=== PATIENT | female | born 1995 ===

== ENCOUNTER 2018-02-01 22:55 | Emergency (ER) | payer BC ==
[2018-02-01 23:05] VITALS: O2SAT 99
--- NOTE | 2018-02-02 00:07 | C.PDOC ---
History Of Present Illness 22 yo female G1Po, 28 wks , present to ED accompanied by for evaluation of pruritic rash gradually developed for past 3 days to B/L arms and lower legs. As per pt, denies recent illness, sick contact, fever, chills, sore throat, throat swelling or tightness, neck pain, CP,SOB, dyspnea, palpitation, denies abd. pain, vaginal bleeding, back pain, denies change in diet, denies recent new medication use, no previous hx of allergy. Pt admits, no complication during the current , (+) care. Ambulate to Ed for evaluation, not in any apparent distress. Time Seen by Provider: 02/01/18 23:30 Chief Complaint (Nursing): Abnormal Skin Integrity History Per: Patient, Family Onset/Duration Of Symptoms: Gradual Past Medical History Reviewed: Historical Data, Nursing Documentation, Vital Signs Vital Signs: Last Vital Signs Temp 98.1 F 02/02/18 00:27 Pulse 75 02/02/18 00:27 Resp 18 02/02/18 00:27 BP 121/72 02/02/18 00:27 Pulse Ox 99 02/02/18 02:03 - Medical History PMH: Asthma Family History: States: No Known Family Hx - Social History Hx Alcohol Use: No Hx Substance Use: No - Immunization History Hx Tetanus Toxoid Vaccination: Yes Hx Influenza Vaccination: No Hx Pneumococcal Vaccination: Yes Review Of Systems Except As Marked, All Systems Reviewed And Found Negative. Constitutional: Negative for: Fever, Chills Eyes: Negative for: Vision Change ENT: Negative for: Ear Discharge, Nose Discharge, Nose Congestion, Mouth Pain, Mouth Swelling, Throat Pain Cardiovascular: Negative for: Chest Pain, Palpitations, Edema, Light Headedness Respiratory: Negative for: Cough, Shortness of Breath, Wheezing Gastrointestinal: Negative for: Nausea, Vomiting, Abdominal Pain, Diarrhea Genitourinary: Negative for: Dysuria Musculoskeletal: Negative for: Neck Pain, Back Pain Skin: Positive for: Rash Neurological: Negative for: Weakness, Numbness, Headache, Dizziness Physical Exam - Physical Exam Appears: Well, Non-toxic, No Acute Distress Skin: Normal Color, Warm, Dry, Rash (scattered macular erythematous rash to B/L forearm and B/L anterior trejo area. NO edema, no proximal streaking.) Head: Normacephalic Eye(s): bilateral: PERRL Ear(s): Bilateral: Normal Nose: No Flaring, No Discharge Oral Mucosa: Moist, No Drooling Tongue: No Swelling Lips: No Swelling Throat: No Erythema, No Drooling, Other (Uvula midline, no edema.) Neck: Supple Cardiovascular: Rhythm Regular Respiratory: No Decreased Breath Sounds, No Accessory Muscle Use, No Stridor, No Wheezing Gastrointestinal/Abdominal: Soft, No Tenderness, Other (Gravid) Back: No CVA Tenderness Extremity: Normal ROM, No Pedal Edema, No Deformity, No Swelling Neurological/Psych: Oriented x3, Normal Speech ED Course And Treatment O2 Sat by Pulse Oximetry: 99 Pulse Ox Interpretation: Normal Progress Note: On re-evaluation, pt is afebrile, hemodynamicaly stable. NOn- toxic, tolerate Po well in Ed. PulseOx 99% RA. ENT: no acute findings, uvula midline, no edema. Neck: SUpple, (-) JVD. Lungs: CTA B/L, BS equal B/L. Abd: Gravid. SKin: erythematous macular rash to B/L forearm and anterior aspect lower legs B/L. No edema, no proximal streaking. Neurologicaly intact. Pt advised and ref. to F/u with PMD, OB in 2-3 days for re-eval. return to ED if any worsening or new changes. Disposition Counseled Patient/Family Regarding: Diagnosis, Need For Followup, Rx Given - Disposition Referrals: Michael Alvarado MD [Staff Provider] - Disposition: HOME/ ROUTINE Disposition Time: 00:07 Condition: STABLE Additional Instructions: Diet restriction Take medication as prescribed Follow up with PMD , OB in 2-3 days for re-evaluation. return to ED if any worsening or new changes. Prescriptions: DiphenhydrAMINE [Benadryl] 25 mg PO BID #10 cap Prednisone [Deltasone] 20 mg PO DAILY #3 tablet Instructions: Hives, - The Seventh Month Forms: YAMAP (Belarusian) Print Language: ALBANIAN - Clinical Impression Clinical Impression: Urticaria,
[2018-02-02 00:31] VITALS: BP 121/72; PULSE 75; RESP 18; TEMP 98.1
== END 2018-02-02 00:34 | disposition home or self-care (01) ==
LOC: C.ER 22:55
DX: O99.713 Diseases of the skin and subcutaneous tissue complicating pregnancy, third trimester (principal); L50.9 Urticaria, unspecified; Z3A.28 28 weeks gestation of pregnancy

== ENCOUNTER 2018-04-08 11:40 | Inpatient (IN) | payer BC ==
[2018-04-08] MEDS ORDERED: Lactated Ringer's 1,000 ML IV ONE ×2 (12:54→18:06)
[2018-04-08] MEDS ORDERED: Penicillin G 5 Million Unit Vial IVPB ONE ×2 (12:54→14:39)
[2018-04-08] MEDS ORDERED: Lactated Ringer's 1,000 ML IV SCH (13:00)
[2018-04-08 13:35] LABS: BASO # 0.1 K/uL (0.0-0.2); BASO % 0.7 % (0.0-2.0); EOS # 0.2 K/uL (0.0-0.7); EOS % 2.1 % (0.0-4.0); HEMOGLOBIN 11.6 g/dL (11.0-16.0); LYMPH # 2.3 K/uL (1.0-4.3); LYMPH % 27.7 % (20.0-40.0); MEAN CELL VOLUME 81.6 fL (81.0-99.0); MEAN CORPUSCULAR HEMOGLOBIN 26.5 pg (27.0-31.0); MEAN CORPUSCULAR HGB CONC 32.5 g/dL (33.0-37.0); MEAN PLATELET VOLUME 10.4 fL (7.2-11.7); MONO # 0.8 K/uL (0.0-0.8); MONO % 9.1 % (0.0-10.0); NEUT % 60.4 % (50.0-75.0); NRBC % 0.1 % (0.0-2.0); RBC 4.37 Mil/uL (3.80-5.20); RED CELL DISTRIBUTION WIDTH 16.8 % (11.5-14.5); WHITE BLOOD COUNT 8.3 K/uL (4.8-10.8)
[2018-04-08 13:41] LABS: SQUAMOUS EPITHIAL 4 /hpf (0-5); URINE BACTERIA RARE (<OCC); URINE BILIRUBIN NEGATIVE (NEGATIVE); URINE BLOOD 2+ (NEGATIVE); URINE CLARITY Hazy (Clear); URINE COLOR Amber (YELLOW); URINE GLUCOSE (UA) NORMAL (Normal); URINE LEUKOCYTE ESTERASE 3+ Leu/uL (Negative); URINE PROTEIN 1+ mg/dL (NEGATIVE)
[2018-04-08 13:46] LABS: BLOOD UREA NITROGEN 7 mg/dL (7-17); GFR NON-AFRICAN AMERICAN > 60
[2018-04-08 14:25] LABS: HEPATITIS B SURFACE AG Negative (NEGATIVE)
[2018-04-08] MEDS ORDERED: Sodium Citrate/Citric Acid 15 ml Sol ONE (15:11)
[2018-04-08] MEDS ORDERED: Oxytocin 10 Units/ml Inj ONE (15:11)
[2018-04-08] MEDS ORDERED: Oxytocin 20 units in LR 2,000 ML IV ONE (15:16)
[2018-04-08] MEDS ORDERED: cefOXitin IV 2 gm in Saline 2 GM/50 ML BAG IVPB ONE (15:16)
--- NOTE | 2018-04-08 16:16 | OBHP ---
Datetime: 04/08/2018 13:57 IP Adm Impression: , intrauterine ; Active labor IP Admit Plan: Admit to unit; Initiate labor protocol Admit Comment, IP Provider: This is a 22 y o @ 38.1 weeks (KAILYN 04/21/2018 via 1st trimester son o) presents to L+D c/o contractions q 5 mins and leakage of fluid that started at 6 am this morning. Denies VB. Reports positive movement. Reports last PO intake at 9 am this morning, states she d rank an Ensure before coming to L+D. Denies headache, dizziness, chest paib, sob, n/v/d/c, abd pain, urinary complaints, or other symptoms. PNC records indicate an OBUS on 03/27 with an EFW of 8lbs, 14 oz PMhx: asthma (last used albuterol inhaler 1 y ago) PSurgHx: denies Allergies: NKDA Meds: vits Fam hx: denies Soc hx: denies smoking, alcohol or illicit drug use Vag exam: /- Nitrazine test positive heart tracing: baseline 145 bpm, moderate accels, Cat I No contractions on toco A/P 22 y o at 38.1 weeks gestation w/ contractions q 5 mins + SROM at 6 am today. BMI 37 Macrosomia per US and size Admit to L+D. Admission labs ordered. Pt given the option of Augmentation of labor at this time and she requested an Elective S ection Hx GBS positive, start Penicillin G q 4 h Procedure, risks and possible complications fully reviewed with the patient and her and maria eugenia th verbalized understanding and requested to proceed. Pt signed the consent and Anesthesia and OR maude re. Plan d/w Dr. Fuentes, attending physician. Extremities - PN: Normal Abdomen - PN: Normal Back - PN: Normal Lungs - PN: Normal Heart - PN: Normal Neurologic - PN: Normal HEENT - PN: Normal General - PN: Normal Presentation-Admit: Vertex FHR - Baseline A Provider: 145 Membranes, Provider: Ruptured Contraction Comments Provider: no contractions on tocometer Gestation - Est Wks by US: 38.2 Nitrazine Provider: Positive IP Hx Assessment: PNC records available and reviewed EGA AdmitDate IP: 38.2 Vital Signs Provider: Reviewed; Within Normal Limits IP Chief Complaint: Uterine contractions; Suspected ruptured membranes; Maternal discomfort; e valuation NICHD Variability Prov Fetus A: Moderate 6-25bpm NICHD Accel Fetus A IP Provider: [id number] FHR Category Provider Fetus A: Category I NICHD Decel Fetus A IP Provider: None Dilatation, Provider: 3 Effacement, Provider: 80 Station, Provider: -1 Genitourinary Exam: Normal Datetime: 04/08/2018 13:19 Pelvic Type - PN: Adequate
[2018-04-08] MEDS ORDERED: Bupivacaine HCl 15 mg/2 ml Spinal Inj ONE (16:32)
[2018-04-08] MEDS ORDERED: Lidocaine Hydrochloride 5 ML INJ ONE (16:47)
--- NOTE | 2018-04-08 17:21 | US ---
Indication: Please estimate weight Comparison: None available Technique: Real-time ultrasound was performed through the pelvis. Findings: There is a single living fetus in cephalic presentation. Amniotic fluid volume is within normal limits. Fundal placenta. The placenta is not previa. There are no adnexal masses or cysts evident. Cervix length measures approximately 2.8 cm. The study was performed emergent evaluation, and the whole anatomic survey of the fetus was not performed. This should be performed on an outpatient elective basis as clinically warranted. Measurements and calculations: Fetus has a composite sonographic age of 37 weeks 6 days. This calculation is based on the biparietal diameter, head circumference, abdominal circumference, and femur length. Estimated heart rate 123.5 beats per min. Estimated weight 3334 g. Biophysical profile: movements 2/2 breathing 2/2 tone 2/2 Amniotic fluid 2/2 Total score impression: 01/09 Impression: Single living fetus with a composite sonographic age of 37 weeks 6 days. Estimated heart rate 123.5 beats per min. Biophysical profile of 8 out of 8. Cervix length measures approximately 2.8 cm.
[2018-04-08] MEDS ORDERED: Oxytocin 30 UNIT 30 UNITS/500 ML BAG IV ONE (18:06)
[2018-04-08] MEDS ORDERED: Oxycodone/Acetaminophen 5/325 mg Tab PO PRN ×2 (18:06)
[2018-04-08] MEDS ORDERED: Morphine 1 mg/ml preservative-free Inj(Duramorph) ONE (18:22)
[2018-04-08] MEDS ORDERED: ePHEDrine 50 mg/ml Inj ONE (18:50)
--- NOTE | 2018-04-08 21:54 | OBADHP ---
Datetime: 04/08/2018 13:57 Admit Comment, IP Provider: This is a 22 y o @ 38.1 weeks (KAILYN 04/21/2018 via 1st trimester son o) presents to L+D c/o contractions q 5 mins and leakage of fluid that started at 6 am this morning. Denies VB. Reports positive movement. Reports last PO intake at 9 am this morning, states she d rank an Ensure before coming to L+D. Denies headache, dizziness, chest paib, sob, n/v/d/c, abd pain, urinary complaints, or other symptoms. PNC records indicate an OBUS on 03/27 with an EFW of 8lbs, 14 oz PMhx: asthma (last used albuterol inhaler 1 y ago) PSurgHx: denies Allergies: NKDA Meds: vits Fam hx: denies Soc hx: denies smoking, alcohol or illicit drug use Vag exam: /- Nitrazine test positive heart tracing: baseline 145 bpm, moderate accels, Cat I No contractions on toco A/P 22 y o at 38.1 weeks gestation w/ contractions q 5 mins + SROM at 6 am today. BMI 37 Macrosomia per US and size Admit to L+D. Admission labs ordered. Pt given the option of Augmentation of labor at this time and she requested an Elective S ection Hx GBS positive, start Penicillin G q 4 h Procedure, risks and possible complications fully reviewed with the patient and her and maria eugenia th verbalized understanding and requested to proceed. Pt signed the consent and Anesthesia and OR maude re. Plan d/w Dr. Fuentes, attending physician. Extremities - PN: Normal Abdomen - PN: Normal Back - PN: Normal Lungs - PN: Normal Heart - PN: Normal Neurologic - PN: Normal HEENT - PN: Normal General - PN: Normal Presentation-Admit: Vertex FHR - Baseline A Provider: 145 Membranes, Provider: Ruptured Contraction Comments Provider: no contractions on tocometer Gestation - Est Wks by US: 38.2 Nitrazine Provider: Positive IP Hx Assessment: PNC records available and reviewed Vital Signs Provider: Reviewed; Within Normal Limits IP Chief Complaint: Uterine contractions; Suspected ruptured membranes; Maternal discomfort; e valuation NICHD Variability Prov Fetus A: Moderate 6-25bpm NICHD Accel Fetus A IP Provider: [id number] FHR Category Provider Fetus A: Category I NICHD Decel Fetus A IP Provider: None Dilatation, Provider: 3 Effacement, Provider: 80 Station, Provider: -1 Genitourinary Exam: Normal EGA AdmitDate IP: 38.2 IP Adm Impression: , intrauterine ; Active labor IP Admit Plan: Admit to unit; Initiate labor protocol Datetime: 04/08/2018 13:19 Pelvic Type - PN: Adequate
[2018-04-08] MEDS: Simethicone 80 mg Chewtab PO SCH (22:00)
--- NOTE | 2018-04-08 22:11 | OBDS ---
DELIVERY PERSONNEL Delivery Doctor: Lexi Fuentes DO Scrub Nurse: Vi Delgado OBT Academic Dean: Chi Barreto RN Anesthesiologist: DR ODONNELL Resident: DR LEW MATERNAL INFORMATION Delivery Anesthesia: Spinal Estimated Blood Loss (ml): 600 Maternal Complications: None Provider Comments: Primary LTC C/S with delivery of a viable Male from MEREDITH position and afte r reducing a loose CNC. Apgars 9_9 at 1_5 mins respectively. BW 8lbs, 11oz. Placenta, cord blood and cord pH sent to Lab EBL 600 mls No complications Pt and tolerated procedure well and both left the OR in S_S condition LABOR SUMMARY EDC: 04/20/2018 00:00 No. Babies in Womb: 1 Labor Anesthesia: None LABOR INFORMATION Group B Beta Strep: Positive Steroids Given: None Reason Steroids Not Administered: Not Applicable MEMBRANES Membranes Rupture Method: Spontaneous Rupture of Membranes: 04/08/2018 06:00 Length of Rupture (hrs): 11.15 Amniotic Fluid Color: Clear Amniotic Fluid Amount: Small Amniotic Fluid Odor: Normal STAGES OF LABOR Stage 3 hrs: 0 Stage 3 min: 1 CSECTION DELIVERY Primary Indication: Other Other Primary Indication: Prolonged SROM Secondary Indication: Macrosomia Other Secondary Indication: Morbid Obesity Elective: Elective CSection Incision: Lower Uterine Transverse Uterine Closure: Single-layer closure BABY A INFORMATION Infant Delivery Date/Time: 04/08/2018 17:09 Method of Delivery: Born in Route : No : N/A SHOULDER DYSTOCIA BABY A Delivery Date/Time: 04/08/2018 17:09 PRESENTATION/POSITION BABY A Presentation: Cephalic Cephalic Presentation: Vertex Vertex Position: Right Occipital Anterior Breech Presentation: N/A PLACENTA INFORMATION BABY A Placenta Delivery Time : 04/08/2018 17:10 Placenta Method of Delivery: Manual Removal Placenta Status: Delivered SCORES BABY A Heart Rate 1 min: >100 bpm Resp Effort 1 min: Good Cry Reflex Irritability 1 min: Cough or Sneeze or Pulls Away Muscle Tone 1 min: Active Motion Color 1 min: Body [place], Extremities Blue Resuscitation Effort 1 min: N/A SCORE 1 MIN: 9 Heart Rate 5 min: >100 bpm Resp Effort 5 min: Good Cry Reflex Irritability 5 min: Cough or Sneeze or Pulls Away Muscle Tone 5 min: Active Motion Color 5 min: Body [place], Extremities Blue SCORE 5 MIN: 9 INFORMATION BABY A Gestational Age at Delivery: 38.2 Gestational Status: Term Infant Outcome : Liveborn Condition : Stable Sex: Male IDENTIFICATION/MEDS BABY A ID Band Number: [id number] ID Band Location: Left Leg; Left Arm Sensor Applied: Yes Sensor Number: [id number] WEIGHT/LENGTH BABY A Infant Birthweight (gms): 3955 Infant Weight (lb): 8 Infant Weight (oz): 11 Infant Length Inches: 20.00 Length cms: 50.8 CORD INFORMATION BABY A No. Cord Vessels: 3 Nuchal Cord : N/A Cord Blood Taken: Yes Suction: Mouth; Nose ASSESSMENT BABY A Infant Complications: None Physical Findings at Delivery: Within Normal Limits Infant Respirations: Appears Normal [employer] Super[employer]/ALS Called : Yes Care By: DR MUÑOZ Transferred To: Remains with Mother
[2018-04-08] MEDS ORDERED: DiphenhydrAMINE 50 mg/ml Inj IVP PRN (22:41)
[2018-04-09 08:39] LABS: HEMOGLOBIN 12.4 g/dL (11.0-16.0); MEAN CELL VOLUME 81.5 fL (81.0-99.0); MEAN CORPUSCULAR HEMOGLOBIN 26.5 pg (27.0-31.0); MEAN CORPUSCULAR HGB CONC 32.5 g/dL (33.0-37.0); MEAN PLATELET VOLUME 10.3 fL (7.2-11.7); RBC 4.67 Mil/uL (3.80-5.20); RED CELL DISTRIBUTION WIDTH 16.4 % (11.5-14.5); WHITE BLOOD COUNT 12.2 K/uL (4.8-10.8)
[2018-04-09] MEDS: Enoxaparin 40 mg Syringe SC SCH (11:06)
[2018-04-09] MEDS: Prenatal Multivit/Folic Acid/Iron Tab PO SCH (11:07)
[2018-04-09] MEDS: Simethicone 80 mg Chewtab PO SCH ×4 (11:09→21:41)
--- NOTE | 2018-04-09 14:39 | OBPPN ---
Datetime: 04/09/2018 07:54 PP Pain Prov: Within normal limits PP Nausea Prov: Denies PP Flatus Prov: No PP BM Prov: No PP Breasts Prov: Normal PP Heart Prov: Normal PP Lungs Prov: Normal PP Abdomen/Uterus Prov: Normal PP Lochia Prov: Normal PP Vulva/Perineum Prov: Normal PP Extremities Prov: Normal PP C/S Incision Prov: Normal PP Progress Prov: Normal PP Impression Prov: Normal progression PP Plan Prov: Continue present management; consult PP Progress Note Prov: 22 y o now at 38.2 weeks s/p Primary low transverse C/s for prolong ed SROM and presumed macrosomia POD#1. Pt seen and examined at bedside this am. Reports mild pa in at surgical site but otherwise states that it is well controlled. without concerns. Denies passing flatus or having BM. S/p wray removal at 6 am today, has not voided yet. Tolerated cl ear diet last night, denies n/v. Denies headache, dizziness, chest pain, sob, d/c, abd pain, urinary complaints, or other symptoms. VS: BP 111/74, P 62, T 98.1 Gen: WDWN female, NAD HEENT: NCAT, PERRLA, EOMI Neck: supple, no JVD Cardio: normal s1/s2, no m/r/g Lungs: CTA b/l, no wheezes rales or rhonchi Abd: soft, mild tenderness to palpation at surgical site, normal bowel sounds x4 Exts: no c/c/e : mild lochia, non-foul smelling Skin: surgical site c/d/i A/P: 22 y o now at 38.2 weeks s/p Primary low transverse C/s for prolonged SROM and pres umed macrosomia POD#1. Meeting goals. S/p wray removal at 6 am today, will monitor voiding Continue with pain management Monitor for flatus and bowel function Encourage ambulation and D/c planning for POD#[address] Liu, attending physician Royal Baltazar, DO PGY-1 Attending Note: patient was seen and evaluated. I agree with the above as documented. Patient is c linically stable. IP PP Procedures: None Vital Signs Provider PP: Reviewed; Within Normal Limits
[2018-04-10 09:35] VITALS: RESP 18
[2018-04-10] MEDS: Simethicone 80 mg Chewtab PO SCH ×4 (09:41→22:45)
[2018-04-10] MEDS: Enoxaparin 40 mg Syringe SC SCH (09:42)
[2018-04-10] MEDS: Prenatal Multivit/Folic Acid/Iron Tab PO SCH (09:47)
[2018-04-10] MEDS ORDERED: guaiFENesin 100 mg/5 ml Syrup UD PO PRN (10:49)
[2018-04-10] MEDS: Oxycodone/Acetaminophen 5/325 mg Tab PO SCH ×3 (13:47→23:59)
--- NOTE | 2018-04-10 18:44 | OBPPN ---
Datetime: 04/10/2018 09:16 PP Pain Prov: Within normal limits PP Nausea Prov: Denies PP Flatus Prov: Yes PP BM Prov: No PP Breasts Prov: Normal PP Heart Prov: Normal PP Lungs Prov: Normal PP Abdomen/Uterus Prov: Normal PP Lochia Prov: Normal PP Vulva/Perineum Prov: Normal PP Extremities Prov: Normal PP C/S Incision Prov: Normal PP Progress Prov: Normal PP Impression Prov: Normal progression; difficulties; Pain PP Plan Prov: Continue present management PP Progress Note Prov: 22 y o now at 38.2 weeks s/p Primary low transverse C/s for prolong ed SROM and presumed macrosomia POD#2. Pt seen and examined at bedside this am. Reports mild pa in at surgical site but otherwise states that it is well controlled. without concerns, but does state she is producing less milk today. States she is not drinking a lot of PO fluids. Admit s to passing flatus, denies having BM. Voiding well without concerns. Tolerating PO diet. Only ambula ting around room. Denies headache, dizziness, chest pain, sob, n/v/d/c, abd pain, urinary complaints, or other symptoms. VS: BP 102/70, P 80, T 98.2 Gen: WDWN female, NAD HEENT: NCAT, PERRLA, EOMI Neck: supple, no JVD Cardio: normal s1/s2, no m/r/g Lungs: CTA b/l, no wheezes rales or rhonchi Abd: soft, mild tenderness to palpation at surgical site, normal bowel sounds x4 Exts: no c/c/e : mild lochia, non-foul smelling Skin: surgical site c/d/i A/P: 22 y o now at 38.2 weeks s/p Primary low transverse C/s for prolonged SROM and pres umed macrosomia POD#2. Meeting goals. Voiding well. Continue with pain management Passing flatus, continue to monitor bowel function Encourage ambulation and , can use breast pump to further assess milk production. Enc ouraged pt to drink a gallon of water/day to help increase milk supply. D/c planning for POD#3 Pt seen, examined with, and plan d/w with Dr. Fuentes, attending physician. Royal Baltazar, DO PGY-1 IP PP Procedures: None
[2018-04-11] MEDS: Oxycodone/Acetaminophen 5/325 mg Tab PO SCH (06:06)
[2018-04-11 09:35] VITALS: BP 112/80; PULSE 74
[2018-04-11] MEDS: Enoxaparin 40 mg Syringe SC SCH (09:36)
[2018-04-11] MEDS: Simethicone 80 mg Chewtab PO SCH (09:38)
[2018-04-11] MEDS: Prenatal Multivit/Folic Acid/Iron Tab PO SCH (09:38)
--- NOTE | 2018-04-11 18:20 | OBPPN ---
Datetime: 04/11/2018 09:34 PP Pain Prov: Within normal limits PP Nausea Prov: Denies PP Flatus Prov: Yes PP BM Prov: No PP Breasts Prov: Normal PP Heart Prov: Normal PP Lungs Prov: Normal PP Abdomen/Uterus Prov: Normal PP Lochia Prov: Normal PP Vulva/Perineum Prov: Normal PP Extremities Prov: Normal PP C/S Incision Prov: Normal PP Progress Prov: Normal PP Comments Phys Exam Prov: Incision clean, dry and intact PP Impression Prov: Normal progression PP Plan Prov: Discharge PP Progress Note Prov: 22 y o now at 38.2 weeks s/p Primary low transverse C/s for prolong ed SROM and presumed macrosomia POD#3. Pt seen and examined at bedside this am. Reports mild pain at surgical site but otherwise s tates that it is well controlled. Observed at bedside without concerns. Per RN, lactati on specialist yesterday stated pt did not need to use breast pump at this time and was taught techinq ues to promote stimulation of breast milk. States she is still not drinking a lot of PO fluids. Admit s to passing flatus, denies having BM. Voiding well without concerns. Tolerating PO diet. Reports she ambulated around maternity floor 4 times yesterday. Denies headache, dizziness, chest pain, sob, n/v /d/c, abd pain, urinary complaints, or other symptoms. + Non-productive cough improving this am and r elieved with Robitussin. VS: BP 124/92, P 81, T 97.5 Gen: WDWN female, NAD HEENT: NCAT, PERRLA, EOMI Neck: supple, no JVD Cardio: normal s1/s2, no m/r/g Lungs: CTA b/l, no wheezes rales or rhonchi Abd: soft, mild tenderness to palpation at surgical site, normal bowel sounds x4 Exts: no c/c/e : mild lochia, non-foul smelling Skin: surgical site c/d/i A/P: 22 y o now at 38.2 weeks s/p Primary low transverse C/s for prolonged SROM and pres umed macrosomia POD#3. Meeting goals. Voiding well. Continue with pain management, currently well controlled Passing flatus, continue to monitor bowel function Encourage ambulation and . Encouraged pt to drink a gallon of water/day to help incre ase milk supply. D/c to home today on POD#3 Patient to f/u in 1 week at [facility] for wound check, and 6 weeks after hospital d/c fo r check. Pt refused contraception at this time; discussion of various options, including risks a nd benefits was had w/ pt at bedside. Pt advised to avoid heavy lifting greater than 20 lbs for the 1st 6 weeks after C/s. Advised to avoid sexual intercourse, insertion of tampons, or douching for the 1st 6 weeks after C /s. Pt seen, examined with, and plan d/w with Dr. Fuentes, attending physician. Royal Baltazar, DO PGY-1 IP PP Procedures: None Vital Signs Provider PP: Reviewed; Within Normal Limits
--- NOTE | 2018-04-11 18:27 | OBDCSUM ---
Datetime: 04/11/2018 12:26 Discharged to, Provider: Home Follow up at, Provider: [facility] Disch Instr Activity: Normal activity; May Shower Disch Instr Diet: Regular Discharge Diet restrict Prov: none Discharge Instructions, Provider: Routine instructions given Discharge Diagnosis, Provider: Term Delivered; PROM - Indicate X Hours Discharge Time: 04/11/2018 12:26 Follow up in weeks, Provider: 04/17/18 Disch Referrals: None Contraception discussed, Prov: Yes Disch Activity Restrictions: No exercising; No lifting; No sexual activity; Nothing in vagina - Inte rcourse, tampons, douche Discharge Comment, Provider: 22 y o now at 38.2 weeks s/p Primary low transverse C/s for p rolonged SROM and presumed macrosomia POD#3. VS: BP 124/92, P 81, T 97.5 Gen: WDWN female, NAD HEENT: NCAT, PERRLA, EOMI Neck: supple, no JVD Cardio: normal s1/s2, no m/r/g Lungs: CTA b/l, no wheezes rales or rhonchi Abd: soft, mild tenderness to palpation at surgical site, normal bowel sounds x4 Exts: no c/c/e : mild lochia, non-foul smelling Skin: surgical site c/d/i Stable and satisfactory condition and recovery D/C home with instructions and Rx for Percocet and Motrin Encourage ambulation and . Encouraged pt to drink a gallon of water/day to help incre ase milk supply. Patient to f/u in 1 week at [facility] for wound check, and 6 weeks after hospital d/c fo r check. Pt refused contraception at this time; Pt advised to avoid heavy lifting greater than 20 lbs for the 1st 6 weeks after C/s. Advised to avoid sexual intercourse, insertion of tampons, or douching for the 1st 6 weeks after C /s. Discharge Diagnosis Prov Other: Macrosomia Contraception after Delivery: Undecided Datetime: 04/11/2018 11:07 Discharged to, Provider: Home Follow up at, Provider: [facility] Disch Instr Activity: Normal activity; May Shower Disch Instr Diet: Regular Discharge Instructions, Provider: Routine instructions given Discharge Diagnosis, Provider: Delivery Follow up in weeks, Provider: 1 week Disch Referrals: None Contraception discussed, Prov: Yes Disch Activity Restrictions: No lifting; No driving; Nothing in vagina - [place], tampons, douch e Discharge Comment, Provider: 22 y o now at 38.2 weeks s/p Primary low transverse C/s for p rolonged SROM and presumed macrosomia POD#3. Meeting goals. Voiding well. Continue with pain management, currently well controlled. Will be discharged home with Motrin and Percocet prescriptions. Passing flatus, continue to monitor bowel function. Encourage ambulation and . Encouraged pt to drink a gallon of water/day to help incre ase milk supply. D/c to home today on POD#3 Patient to f/u in 1 week at [facility] for wound check, and 6 weeks after hospital d/c fo r check. Pt refused contraception at this time; discussion of various options, including risks a nd benefits was had w/ pt at bedside. Pt advised to avoid heavy lifting greater than 20 lbs for the 1st 6 weeks after C/s. Advised to avoid sexual intercourse, insertion of tampons, or douching for the 1st 6 weeks after C /s. Can shower, however was instructed to not immerse surgical site directly in water. Steri strips wi ll fall off on own. Discharge Diagnosis Prov Other: 38.2 weeks Contraception after Delivery: Not Planning to Use
[2018-04-11 19:28] VITALS: TEMP 98; O2SAT 98
[2018-04-13] MEDS ORDERED: Influenza Vaccine 60 MCG/0.5 ML SYR (3 yr & up) IM ONE (11:54)
== END 2018-04-11 13:15 | disposition home or self-care (01) | DRG 788 ==
LOC: C.EROB 11:40 → C.4D 12:55 → C.4M 21:15
PROVIDERS: ADMIT Obstetrics & Gynecology; ATTEND Obstetrics & Gynecology
PROC: 10D00Z1 Extraction of Products of Conception, Low, Open Approach (ICD-10-PCS; principal; 2018-04-08)
DX: O36.63X0 Maternal care for excessive fetal growth, third trimester, not applicable or unspecified (principal); O99.824 Streptococcus B carrier state complicating childbirth; O99.214 Obesity complicating childbirth; E66.01 Morbid (severe) obesity due to excess calories; J45.909 Unspecified asthma, uncomplicated; Z3A.38 38 weeks gestation of pregnancy; Z37.0 Single live birth

== ENCOUNTER 2018-09-13 10:03 | Emergency (ER) | payer BC ==
[2018-09-13 10:09] VITALS: BMI 32.3
--- NOTE | 2018-09-13 10:52 | C.PDOC ---
History Of Present Illness 22 year old female presents to the ED for evaluation of right hand pain, over her thumb area, which began around one week ago. Patient states her pain is worse with movement. Of note, patient works with her hands, and her work requires constant motions using her right hand. Patient denies trauma/injury to the area, deformity, weakness or sensorivascular deficits. Time Seen by Provider: 09/13/18 10:25 Chief Complaint (Nursing): Finger,Hand,&Wrist History Per: Patient History/Exam Limitations: no limitations Onset/Duration Of Symptoms: Days (one week ) Current Symptoms Are (Timing): Still Present Quality: "Pain" Additional History Per: Patient Past Medical History Reviewed: Historical Data, Nursing Documentation, Vital Signs Vital Signs: Last Vital Signs Temp 98.3 F 09/13/18 10:09 Pulse 66 09/13/18 10:09 Resp 16 09/13/18 10:09 BP 104/66 09/13/18 10:09 Pulse Ox 99 09/13/18 10:09 - Medical History PMH: Asthma Denies: Depression, Diabetes, HTN Surgical History: No Surg Hx - [facility] Procedures EXTRACTION OF POC, LOW CERVICAL, OPEN APPROACH (04/08/18) Family History: States: Unknown Family Hx - Social History Hx Alcohol Use: No Hx Substance Use: No - Immunization History Hx Tetanus Toxoid Vaccination: Yes Hx Influenza Vaccination: No Hx Pneumococcal Vaccination: Yes Review Of Systems Constitutional: Negative for: Fever, Chills, Weakness Musculoskeletal: Positive for: Hand Pain (right, over thumb region ) Skin: Negative for: Rash, Lesions, Jaundice, Bruising Neurological: Negative for: Weakness, Numbness Physical Exam - Physical Exam Appears: Well, Non-toxic, No Acute Distress Skin: Normal Color, Warm, No Rash, No Ecchymosis, No Other (skin changes to right hand ) Extremity: No Normal ROM (limited ROM of right thumb secondary to pain ), Tenderness (over right thenar area ), Capillary Refill (less than 2 seconds ), No Deformity, No Swelling Pulses: Right Radial: Normal Neurological/Psych: Oriented x3, Normal Speech, Normal Cognition ED Course And Treatment - Laboratory Results Urine POC: Negative O2 Sat by Pulse Oximetry: 99 Pulse Ox Interpretation: Normal Progress Note: Right hand XR ordered and reviewed. Imaging review and appears normal. On re-eval, pt is afebrile, hemodynamicaly stable. Right hand: mild tenderness thenar area. FAROM, no neurovascular deficits. Thumb spica applied to Right ahnd. Pt advised and ref to F/u with hand specialsit in 2-3 days for re-evaluation Disposition Counseled Patient/Family Regarding: Studies Performed, Diagnosis, Need For Followup, Rx Given - Disposition Referrals: Alonzo Izquierdo MD [Medical Doctor] - Alonzo Izquierdo MD [Staff Provider] - Disposition: HOME/ ROUTINE Disposition Time: 11:20 Condition: STABLE Additional Instructions: Splint for 1 week take medication as prescribed Follow up with hand specialist in 2-3 days for re-evaluation. return to ED if any worsening or new changes. Prescriptions: Prednisone [Deltasone] 40 mg PO DAILY #6 tablet Instructions: Hand Pain Forms: [facility] (Georgian), Work Excuse Print Language: PORTUGUESE - Clinical Impression Clinical Impression: Arthralgia of hand - PA / COMPUGRAPH OPERATOR / Resident Statement MD/DO has reviewed & agrees with the documentation as recorded. - Scribe Statement The provider has reviewed the documentation as recorded by the Scribe (Elba Gutierrez) All medical record entries made by the Scribe were at my direction and personally dictated by me. I have reviewed the chart and agree that the record accurately reflects my personal performance of the history, physical exam, m edical decision making, and the department course for this patient. I have also personally directed, reviewed, and agree with the discharge instructions and disposition.
[2018-09-13 12:22] VITALS: BP 126/82; PULSE 82; RESP 18; TEMP 98.1; O2SAT 100
--- NOTE | 2018-09-13 12:30 | RAD ---
Date of service: 09/13/2018 PROCEDURE: Right Thumb radiographs. HISTORY: pain COMPARISON: None. TECHNIQUE: AP radiograph of the right hand, as well as spot oblique and lateral images of thumb were obtained. 3 views obtained. FINDINGS: RIGHT THUMB: Normal right thumb, without fracture or focal lesion. Remainder of the right hand (as seen on the AP view) grossly unremarkable. JOINTS: Normal. SOFT TISSUES: Normal. OTHER FINDINGS: None. IMPRESSION: Normal right thumb radiographs.
== END 2018-09-13 12:21 | disposition home or self-care (01) ==
LOC: C.ER 10:03
DX: M25.541 Pain in joints of right hand (principal)